=== PATIENT | female | born 1990 | race Caucasian/White ===

== ENCOUNTER 2019-04-17 09:10 | Emergency (ER) | payer BC ==
[2019-04-17 09:54] LABS: #Basophils 0.1 thou/uL (0.0-0.2); #Eosinphils 0.2 thou/uL (0.0-0.7); #Lymphocytes 2.2 thou/uL (1.20-3.40); #Monocytes 0.6 thou/uL (0.11-0.59); #Neutrophils 6.7 thou/uL (1.40-6.50); %Basophils 0.5 % (0.0-1.0); %Eosinophils 2.4 % (0.0-10.0); %Monocytes 6.5 % (0.0-10.0); %Neutrophils 68.5 % (42.0-75.0); Hemoglobin 13.1 g/dL (12.0-16.0); Mean Corpuscular HGB CONC 33.7 g/dL (32.0-36.0); Mean Corpuscular Hemoglobin 28.1 pg (27.0-31.0); Mean Corpuscular Volume 83.3 fL (78.0-98.0); Mean Platelet Volume 7.2 fL (7.4-10.4); Platelet Count 261 thou/uL (130-400); RBC Distribution Width 12.2 % (11.5-14.5); Red Blood Cell (RBC) Count 4.66 mill/uL (4.20-5.40); White Blood Cell (WBC) Count 9.8 thou/uL (4.8-10.8)
[2019-04-17 10:14] LABS: ALT (SGPT) 16 U/L (8-55); AST (SGOT) 12 U/L (5-34); Albumin 4.3 g/dL (3.5-5.0); Alkaline Phosphatase 90 U/L (40-110); Anion Gap 11 mmol/L (10-20); BUN (Urea Nitrogen) 9 mg/dL (7.0-18.7); Bilirubin, Total 0.4 mg/dL (0.2-1.2); Calc. Creatinine Clearance 0 mL/min (70-130); Calcium 9.3 mg/dL (7.8-10.44); Carbon Dioxide 25 mmol/L (22-29); Chloride 104 mmol/L (98-107); Estimated GFR-MDRD Greater than 90; Globulin 2.7 g/dL (2.4-3.5); Glucose 96 mg/dL (70-105); Lipase 10 U/L (8-78); Potassium 3.9 mmol/L (3.5-5.1); Sodium 136 mmol/L (136-145)
--- NOTE | 2019-04-17 10:24 | ULT ---
EXAM: US Gallbladder RUQ CLINICAL HISTORY: Pain.. COMPARISON: None. FINDINGS: Pancreas: Obscured by bowel gas Liver:Heterogeneous echotexture, limiting evaluation for hepatic masses and intrahepatic biliary dila tation. The contour of the hepatic margins maintained. Right hepatic lobe measures 15.3 cm. Gallbladder: No sonographic evidence of cholelithiasis, gallbladder wall thickening or pericholecysti c fluid. Puckett's sign:Negative Portal Vein: Patent. Appropriate directional flow Bile ducts: Common bile duct diameter 0.3 cm Right kidney: No hydronephrosis. Right kidney measures 11 cm cm in length. IMPRESSION: 1. No evidence of cholelithiasis or: Status. 2. Slightly heterogeneous hepatic parenchymal echotexture. Correlate for hepatic steatosis or hepatoc ellular disease
== END 2019-04-17 10:39 | disposition home or self-care (01) ==
LOC: ERS 09:10
DX: K80.20 Calculus of gallbladder without cholecystitis without obstruction (principal); F32.9 Major depressive disorder, single episode, unspecified; Z79.899 Other long term (current) drug therapy
CPT/HCPCS: 36415; 76705; 80053; 83690; 85025

== ENCOUNTER 2019-04-27 07:40 | Outpatient (CLI) | payer BC ==
--- NOTE | 2019-04-27 11:58 | NM ---
EXAM: NM Hida Scan W Drug PROVIDED CLINICAL HISTORY: Right upper quadrant abdominal pain for 2 weeks. COMPARISON: None FINDINGS: There is normal uptake and excretion of radiotracer by the liver. Gallbladder activity is faintly vis ualized by 14 minutes with increasing activity in the gallbladder imaging up to 60 minutes. Bowel activity is visualized by 35 minutes. After 60 minutes of imaging, 8 ounces of ensure was administere d by mouth, and a gallbladder ejection fraction of 80% was obtained. Normal gallbladder ejection fraction is greater than 33%. IMPRESSION: 1. No evidence of a cystic or common duct obstruction. 2. Normal gallbladder ejection fraction.
== END 2019-04-27 07:41 | disposition home or self-care (01) ==
LOC: NM 07:40
PROVIDERS: ATTEND Specialist
DX: R10.11 Right upper quadrant pain (principal)
CPT/HCPCS: 78227; A9537